=== PATIENT | female | born 1965 | race Caucasian/White ===

== ENCOUNTER → 2024-03-13 11:05 | Outpatient (REF) | payer OTHER, SELFPAY | LOC: WDC 11:05 | PROVIDERS: ATTENDING PHYSICIAN Nurse Practitioner Adult Health; FAMILY PHYSICIAN Family Medicine | DX: Z12.31 Encounter for screening mammogram for malignant neoplasm of breast (principal) | CPT/HCPCS: 77063; 77067 ==

== ENCOUNTER → 2024-07-30 10:46 | Outpatient (REF) | payer OTHER, SELFPAY | LOC: RCS 10:46 | PROVIDERS: ATTENDING PHYSICIAN Obstetrics & Gynecology Gynecology; FAMILY PHYSICIAN Family Medicine | DX: N95.0 Postmenopausal bleeding (principal); Z01.810 Encounter for preprocedural cardiovascular examination | CPT/HCPCS: 93005 ==

== ENCOUNTER → 2024-08-02 07:00 | Outpatient (REF) | payer OTHER, SELFPAY | LOC: CLAB 07:00 | PROVIDERS: ATTENDING PHYSICIAN Obstetrics & Gynecology Gynecology | DX: N95.0 Postmenopausal bleeding (principal); N93.9 Abnormal uterine and vaginal bleeding, unspecified; N95.1 Menopausal and female climacteric states | CPT/HCPCS: 88305 ==

== ENCOUNTER → 2024-10-04 07:30 | Outpatient (REF) | payer OTHER, SELFPAY | LOC: CLAB 07:30 | PROVIDERS: ATTENDING PHYSICIAN Obstetrics & Gynecology Gynecology | DX: N95.0 Postmenopausal bleeding (principal) | CPT/HCPCS: 88305 ==

== ENCOUNTER → 2024-11-22 11:24 | Outpatient (REF) | payer OTHER, SELFPAY | LOC: RAD 11:24 | PROVIDERS: ATTENDING PHYSICIAN Obstetrics & Gynecology Gynecologic Oncology; FAMILY PHYSICIAN Family Medicine | DX: N95.0 Postmenopausal bleeding (principal); N93.9 Abnormal uterine and vaginal bleeding, unspecified; D25.0 Submucous leiomyoma of uterus; Z12.9 Encounter for screening for malignant neoplasm, site unspecified | CPT/HCPCS: 74177; Q9967 ==

== ENCOUNTER → 2024-12-16 12:30 | Outpatient (REF) | payer OTHER, SELFPAY ==
[2024-12-16 13:25] LABS: APTT 29.1 Sec (23.4-35.0); INR 1.14; PT 14.9 Sec (11.4-14.6)
[2024-12-16 13:35] LABS: % Basophils 1.6 % (0-2); % Eosinophils 3.8 % (0-6); % Immature Granulocytes 0.2 % (0-0.5); % Lymphocytes 34.5 % (20.5-51.1); % Monocytes 8.1 % (1.7-9.3); % Neutrophils 51.8 % (42.2-75.2); Absolute Basophils 0.1 10^3/uL (0-0.2); Absolute Eosinophils 0.2 10^3/uL (0-0.7); Absolute Lymphocytes 1.7 10^3/uL (1.2-3.4); Absolute Monocytes 0.4 10^3/uL (0.1-0.6); Absolute Neutrophils 2.6 10^3/uL (1.4-6.5); Hematocrit 40.8 % (37.0-47.0); Hemoglobin 13.9 g/dL (12.0-16.0); Mean Corp Hgb Conc. 34.1 g/dL (33.0-37.0); Mean Corpuscular Hgb 30.4 pg (27.0-31.0); Mean Corpuscular Volume 89.3 fL (81.0-99.0); Mean Platelet Volume 9.8 fL (7.4-10.4); Nucleated Red Blood Cells % 0 %; Platelet Count 235 10^3/uL (130-400); Red Blood Cell Count 4.57 10^6/uL (4.20-5.40); Red Cell Dist. Width 12.3 % (11.5-14.5)
[2024-12-16 13:38] LABS: ALT (SGPT) 13 U/L (0-35); AST (SGOT) 23 U/L (14-36); Albumin 4.2 g/dl (3.5-5.0); Alkaline Phosphatase 91 U/L (38-126); Blood Urea Nitrogen 9 mg/dl (7-17); Calcium 9.7 mg/dl (8.4-10.2); Carbon Dioxide 30 mmol/L (22-30); Chloride 104 mmol/L (98-107); Glucose 107 mg/dl (70-99); Iron 123 ug/dl (37-170); LDH 207 U/L (120-246); Potassium 4.8 mmol/L (3.5-5.1); Sodium 140 mmol/L (135-145); Total Bilirubin 0.6 mg/dl (0.2-1.3); eGFR > 60.00
[2024-12-16 13:47] LABS: Percent Saturation 40 % (20-50); Total Iron Binding Capacity 306 ug/dl (265-497)
[2024-12-16 18:21] LABS: CA 125 10.6 U/mL (0-35)
[2024-12-16 19:38] LABS: FSH 51.4 mIU/ml
[2024-12-16 19:47] LABS: TSH Reflex To Free T4 1.05 uIU/ml (0.47-4.68)
[2024-12-16 19:51] LABS: CEA 0.69 ng/ml; Ferritin 20.1 ng/ml (11.1-264.0)
[2024-12-16 20:22] LABS: Folate 9.8 ng/ml (2.76-20); Vitamin B12 358 pg/ml (239-931)
== END ==
LOC: REG 12:30
PROVIDERS: ATTENDING PHYSICIAN Obstetrics & Gynecology Gynecologic Oncology; FAMILY PHYSICIAN Family Medicine
DX: N95.0 Postmenopausal bleeding (principal); N93.9 Abnormal uterine and vaginal bleeding, unspecified; D25.0 Submucous leiomyoma of uterus; Z12.9 Encounter for screening for malignant neoplasm, site unspecified
CPT/HCPCS: 36415; 80053; 82378; 82607; 82728; 82746; 83001; 83002; 83540; 83550; 83615; 84443; 85025; 85610; 85730; 86304

== ENCOUNTER 2024-12-17 06:15 | Day surgery (SDC) | payer OTHER, SELFPAY ==
[2024-11-27 14:11] VITALS: BMI 21.9
--- NOTE | 2024-12-15 08:22 | W.CON.GYNONC ---
Chief Complaint
-
n/a
History of Present Illness
59�year�old��woman�referred�to�me�by�Dr.�Idaliastein.�Apparently�she�has�been�having�many�episodes�of postmenopausal�bleeding.�She�had�a�abdominal�myomectomy�in�her�40s�and�while�the�bleeding�improved�for�few�years�she�was�not
ready�to�part�with�her�uterus�according�to�her�even�though�it�was�recommended.�She�does�not�recall�having�persistent�12�months�of
amenorrhea.�She�has�had�vasomotor�symptoms�suggestive�of�hot�flashes�of�menopause�in�her�early�50s.�Ultrasound�of�pelvis �shows�uterus�retroverted�measuring�8.2�cm,�large�fibroid�in�the�anterior�fundus�measuring�3.7�cm.�Right�ovary�is�2.1
cm,�left�ovary�is�1.7�cm.�Subsequently�MRI�of�the�pelvis�was�performed�dated�October��which�indicated�presence�of�a
fibroid�in�the�central�aspect�of�the�uterus�3.8�x�4�cm�submucosal�in�location.�Bilateral�adnexa�are�unremarkable�and�there�is�no pelvic�lymphadenopathy.
She�had�undergone�a�dilation�and�curettage�and�hysteroscopic�myomectomy�in�[place]�when�the�intracavitary�fibroid�was�first
seen.�Patient�was�taken�to�the�operating�room�for�D&C�hysteroscopy�and�hysteroscopic�resection�of�fibroid�on�[place]�
due�to�complaint�of�postmenopausal�bleeding�and�a�3�to�4�cm�intracavitary�fibroid.�D&C�hysteroscopy�with�hysteroscopic�resection
of�fibroid�was�performed.�Pathology�shows�portions�of�leiomyoma.�Due�to�limit�of�the�fluid�deficit�procedure�was�aborted�and decision�was�made�to�bring�the�patient�back�to�another�time�to�remove�the�remainder�of�the�fibroid.�A�repeat�history�scopic
myomectomy�was�performed�February��which�showed�again�fragments�of�leiomyoma�with�scant�benign�endometrial�and endocervical�epithelium.�Despite�these�2�procedures�she�continues�to�have�a�blood�and�mucus�discharge�intermittently�that�is�not
like�her�menstrual�cycle�and�she�is�frustrated�with�her�symptoms.
REAR ADMIRAL�history�significant�for�menarche�at�age�12,
Past�medical�history:�None
Past�surgical�history�abdominal�myomectomy�May�2010
Medications:�None
Allergies:�[place]�nuts�causing�hives Social�history:�,�works�as�a�sales�leader,�drinks�moderate�alcohol�per�week,�denies�tobacco�drug�or�marijuana�use.
Medical History
Allergies
Allergies reflect when allergies were last updated in [facility].
codeine Allergy (Verified 12/09/24 08:36)
upset stomach/nausea
pine nut Allergy (Verified 12/09/24 08:36)
Hives
pollen extracts Allergy (Verified 12/09/24 08:36)
seasonal allergies
Physical Exam
Physical Exam
External�normal�labia,�urethra,�anus.�
Vagina:�Normal�mucosa.�
Cervix:�normal�appearance,�no�discharge.�
Uterus:�normal�size.�
Adnexa:�No�pelvic�mass.�
RVE:�no�masses�or�nodularity
General:�Well�developed,�well�nourished�patient.�In�no�acute�distress.
Head:�Atraumatic�and�normocephalic.
Neck:�No�thyromegaly.�No�cervical�lymphadenopathy.
Lungs:�Clear�to�auscultation.�Good�air�movement�bilaterally.
Cardiac:�Regular�rate.�Regular�rhythm.�No�murmurs�appreciated.
Right�Breast:�No�masses�or�dimpling.�No�nipple�discharge. Left�Breast:�No�masses�or�dimpling.�No�nipple�discharge. Abdomen:�Abdomen�is�soft.�Non�tender�to�palpation.�Non�distended.
Extremities:�No�edema.
Hematologic/Lymphatic:�No�palpable�lymphadenopathy.
Musculoskeletal:�Normal�range�of�motion.�Strength�and�Tone�are�normal.
Skin:Non�jaundiced.�No�petechia.�No�purpura.
Neurologic:�Speech�is�fluent.�Normal�gait�and�station.�Cranial�nerves�intact.
Results
-
[facility]
[address] [place] [address]
[phone]
Patient Name: ANNITA CUEVAS
: 1965
Unit Number: [id number]
Age/Sex: 59/F
Patient
Location: RAD
Order Provider: Dustin Gutierrez MD
Exam Service Date: 11/22/24

Diagnostic Imaging Report
SignedOrder #:[id number]
Exams: CT Abd/pel W Iv And Oral Contr
CPT: 88257
PROCEDURE: CT Abd/pel W Iv And Oral Contr
COMPARISON: MRI pelvis dated 06/01/2023; ultrasound pelvis dated 04/11/2023
CLINICAL INDICATION: Postmenopausal bleeding; evaluate for metastatic disease
TECHNIQUE: Spiral scanning through abdomen/pelvis in axial plane using 5 mm slice thickness after oral/IV contrast administered
FINDINGS: 5 mm calcified nodule in the medial right lower lobe. In the right lower mediastinum, there is a calcified lymph node measuring 8 mm in diameter. Findings related to old granulomatous disease
Liver normal in size; liver measures 14.1 cm in craniocaudal diameter. 8 mm benign cyst at the junction of anterior and posterior segments right hepatic lobe. In the posterior segment right hepatic lobe, there is a well-defined low-attenuation
lesion measuring 6 mm in diameter. This is too small to definitively characterize. As this is well-defined, this probably represents a benign cyst as well. In addition, there is a hypervascular lesion in the posterior segment right hepatic lobe
measuring 1.0 x 1.0 cm.
Evidence of old granulomatous disease in the spleen. Pancreas, adrenals, kidneys normal in appearance. No abdominal adenopathy or free air. Bowel loops are decompressed.
Within the pelvis, there is 3.5 x 3.3 cm enhancing mass in the uterine fundus. This is consistent with a fibroid. Adnexa unremarkable. No free pelvic fluid
Large amount of stool within the colon. Small amount of intravaginal gas.
IMPRESSION:
3.5 x 3.3 cm fibroid in the uterine fundus. This is similar in size to the prior studies
1 cm hypervascular lesion in the posterior segment right hepatic lobe. Possible etiologies include flash filling benign hemangioma, focal nodular hyperplasia, or less likely a malignant process. Consider follow-up CT in 4-6 months for reevaluation.
No adenopathy in abdomen or pelvis
Large amount of stool within the colon. Please correlate clinically for constipation.
Electronically signed by Jhonny Martinez MD, 11/22/2024 5:55 PM
Impression / Plan
-
This�patient�has�had�postmenopausal�bleeding,�without�any�indication�of�polyps,�hyperplasia�or�endometrial�cancer.�The�only
abnormality�identified�by�imaging�studies�has�been�a�large�submucosal�leiomyoma�which�has�been�now�resected�over�the�course�of
2�separate�hysteroscopic�procedures.�Unfortunately�it�could�not�be�fully�removed�and�the�patient�is�continuing�to�have�symptoms.�I
explained�to�her�that�it�is�not�usual�for�leiomyomas�to�cause�postmenopausal�bleeding�and�1�has�to�always�look�for�other�causes such�as�endometrial�pathology,�stimulation�of�endometrium�secondary�to�exogenous�or�endogenous�hormones,�consideration�of
stromal�tumors�of�the�ovary�such�as�granulosa�cell�tumor�of�the�ovary�as�well�as�occult�neoplasms�in�the�fallopian�tube. I�am�recommending�blood�work�including�tumor�markers�for�epithelial�and�sex�cord�stromal�tumors�as�well�as�coagulation
parameters CT�of�abdomen�and�pelvis�will�be�obtained�to�ensure�she�does�not�have�retroperitoneal�adenopathy�or�upper�abdominal�disease
I�am�recommending�that�we�proceed�with�surgical�treatment�including�robotic�assisted�total�laparoscopic�hysterectomy�bilateral
salpingo�oophorectomy,�I�think�it�is�reasonable�to�perform�injection�of�cervix�and�identification�and�excision�of�sentinel�lymph�nodes simultaneously�in�the�event�on�the�final�pathology�there�is�endometrial�pathology�present.
Risks�of�surgery�including�infection�bleeding�injury�to�adjacent�organs�DVT�pulmonary�embolism�and�cardiovascular�complications were�discussed�and�reviewed.
Informed�consent�was�signed�in�the�office�today.�The�patient�would�like�to�have�the�procedure�performed�in�early�May�and�she�will be�scheduled�and�notified�by�our�surgical�schedulers.
I�did�request�that�she�has�a�visit�with�her�primary�care�physician�in�the�interim�prior�to�surgery�as�she�has�not�had�a�visit�for�the�last 2�years.�Her�questions�about�the�recovery�process�was�addressed
[2024-12-17] VITALS (10 sets, daily range): BP systolic 91–110; BP diastolic 57–76; BMI 21.9
[2024-12-17] MEDS: NEURONTIN 300 MG PO (09:42)
[2024-12-17] MEDS: TYLENOL 1000 MG PO (09:42)
[2024-12-17] MEDS: HEPARIN 5000 UNITS SC (09:42)
[2024-12-17] MEDS: CELEBREX 200 MG PO (09:42)
[2024-12-17] MEDS: TRANSDERM-SCOP 1 PATCH TRANSDERM (09:43)
--- NOTE | 2024-12-17 12:19 | OR.RPT ---
Operative Report
Operative Report
Date of procedure: December 17, 2024
Primary Surgeon: Dustin Gutierrez
Assisting Surgeon: eJmma Martinez PA-C, Timi CONCEPCION
The assistance of was required due to the complexity of the procedure. During the procedure they both assisted with retraction, resection, and closure of the wound.
Pre-op Diagnosis: Unexplained postmenopausal bleeding, prior history of myomectomy
Post-op Diagnosis: same pending final pathology
Procedure Performed:
Robotic assisted total laparoscopic hysterectomy, bilateral salpingo-oophorectomy pelvic washings
Injection of cervix with ICG dye for mapping and identification of sentinel lymph nodes, bilateral
Robotic assisted laparoscopic bilateral pelvic sentinel lymphadenectomy
TAP block
Anesthesia Type: General ET
Specimen / Cultures: Uterus, cervix, R & L tubes and ovaries, right and left external iliac sentinel lymph nodes, posterior cul-de-sac and left anterior abdominal wall implant
Estimated Blood Loss: 50
Complications: none
Operative Findings: Uterus and cervix appears within normal limits, small implant present posterior cul-de-sac suggestive of old surgery. Small pedunculated implant present left anterior abdominal wall peritoneum, upper abdomen including omentum
stomach liver gallbladder right and left diaphragms and spleen appear normal
PROCEDURE IN DETAIL: This patient was taken to the operating room and placed in a supine position. General anesthesia was administered. She was intubated without any difficulty. She was placed in lithotomy position using Yellofin stirrups. Arms
were wrapped in place along the patient's side and all joints were attended to ensure lack of any pressure on any upper or lower extremity. The patient was prepped on the abdomen, perineum, and
vagina. Hillman catheter was inserted under sterile conditions in the bladder. The patent was draped. Timeout procedure was completed. She received appropriate antibiotics preoperatively. Cervix was injected with ICG dye approximately 1 cc at 3 and
9:00 positions at 5 and 10 mm deep stations. After dilation of the cervical canal which sounded to 8 cm, uterine menipulator svp operations type was placed in the uterus with a 3.0 cm KENZIE ring. Vaginal cuff occluder was insufflated.
Veress needle was inserted just below left subcostal margin and pneumoperitoneum was created up to pressure of 15 mmHg. 8 mm robotic port was inserted 25 cm cephalad to symphysis pubis into the peritoneal cavity. A survey of the upper abdomen
reveals liver, stomach, diaphragms, right and left pericolic gutters to be within normal limits. Under direct visualization, TAP block was injected with Ropivacaine and Decadron mixture equally distributed 2 fingerbreadths along the lateral aspect
of right and left subcostal margins just above the peritoneum, but below the muscle. Once this was completed, right and left upper quadrant XI robotic ports were placed and right and left XI robotic ports were placed in the lateral abdomen. The
patient was placed in 28 degree Trendelenburg.
The robotic system was docked. Right and left round ligaments were sealed and divided. Anterior and posterior leads and the broad ligament was dissected open. The course of the ureters were identified bilaterally and a window was created between IP
ligaments and ureters. Both IP ligaments were isolated and sealed 3 times and divided. Tubes and ovaries were left attached to the uterus.
Retroperitoneal spaces were opened including paravesical and paracervical spaces. Using firefly system the near infrared imaging was used to track ICG dye, left sentinel lymph node was made external iliac artery, right sided sentinel lymph node was
just posterior to the proximal right external iliac artery these were excised and submitted to pathology. Good hemostasis was present.. Next, bladder flap was sharply developed and advanced below the cervicovaginal junction. Both uterine arteries
were skeletonized. Uterine vessels followed by any additional cardinal ligaments followed by uterosacral ligaments were sealed 3 times and divided. paracervical and uterosacral ligament were sealed and divided. Circumferential incision was made
around the Kenzie ring until the specimen was completely detached. Uterus, cervix, bilateral tubes, and ovaries were removed through the vagina and submitted to pathology. The vaginal apex was closed with 0-Vicryl suture and ligature in a Figure-of-8
fashion at both apices. Following this, V-Loc suture was used to close the vaginal cuff starting from right to the left side and back to the right side in 2 layers. We irrigated the pelvis and there was no evidence of bleeding. We inspected the
vagina and there was no evidence of lacerations. All ports were removed and pneumoperitoneum was released. The fascia for all the ports were not closed because they were 8 mm each in size. Skin incisions were closed with 4-0 Monocryl in a
subcuticular fashion.
Peritoneal implant in the mid posterior cul-de-sac as well as left anterior abdominal wall was removed and submitted to pathology.
The patient was awakened, extubated, and returned back to recovery room in stable, awake, and extubated condition. Counts of laps, instruments, and needle was correct x2. I was present and scrubbed for the entire procedure as dictated above.
DISPOSITION: To PACU, stable, awake, and extubated.
[2024-12-17] MEDS: DEMEROL 12.5 MG IV (12:27)
[2024-12-17] MEDS: ZOFRAN 4 MG IV (12:50)
== END 2024-12-17 14:04 | disposition home or self-care (01) ==
LOC: SDS 06:15
PROVIDERS: ATTENDING PHYSICIAN Obstetrics & Gynecology Gynecologic Oncology; FAMILY PHYSICIAN Family Medicine
DX: D25.0 Submucous leiomyoma of uterus (principal); N83.8 Other noninflammatory disorders of ovary, fallopian tube and broad ligament; N95.0 Postmenopausal bleeding
CPT/HCPCS: 58571; 38900; 38570; 88305; 88307; 36415; 86850; 86900; 86901; 88112

== ENCOUNTER → 2025-04-15 15:47 | Outpatient (REF) | payer OTHER, SELFPAY | LOC: WDC 15:47 | PROVIDERS: ATTENDING PHYSICIAN Nurse Practitioner Adult Health; FAMILY PHYSICIAN Family Medicine | DX: Z12.31 Encounter for screening mammogram for malignant neoplasm of breast (principal) | CPT/HCPCS: 77063; 77067 ==